=== PATIENT | female | born 1950 | race Caucasian/White ===

== ENCOUNTER 2020-02-03 14:04 | Emergency (ER) | payer MEDICARE, OTHER ==
[~2020-02-03] VITALS: Ht 165.1 cm; Wt 71.2 kg
[2020-02-03] MEDS ORDERED: MICARDIS 20MG T20 M1 PO (14:42)
[2020-02-03] MEDS ORDERED: HYDROCHLOROTHIA25 M2 PO (14:42)
[2020-02-03] MEDS ORDERED: CRESTOR5 MG PO (14:43)
[2020-02-03] MEDS ORDERED: PREVACID30 MG PO (14:43)
[2020-02-03] MEDS ORDERED: SYNTHROID75 MCG PO (14:43)
[2020-02-03 15:16] LABS: ABSOLUTE BASOPHILS 0.1 thou/uL (0.0-0.2); ABSOLUTE EOSINOPHILS 0.1 thou/uL (0.0-0.7); ABSOLUTE LYMPHOCYTES 0.8 thou/uL (0.8-5.3); ABSOLUTE MONOCYTES 0.9 thou/uL (0.0-1.2); ABSOLUTE NEUTROPHILS 8.2 thou/uL (1.6-8.1); BASOPHILS 1.2 %; HEMATOCRIT 37.5 % (37.0-47.0); HEMOGLOBIN 12.6 gm/dL (12.0-15.0); LYMPHOCYTES 7.8 %; MCH 28.8 pg (26.0-34.0); MCHC 33.6 g/dL (28.0-37.0); MCV 85.6 fL (80.0-100.0); MONOCYTES 8.7 %; MPV 7.9 fl. (7.2-11.1); NUCLEATED RBCS 0 /100WBC; PLATELET COUNT* 271 thou/uL (150-400); POLYS 81.3 %; RBC 4.38 mil/uL (4.20-5.00); RDW-CV 13.5 % (10.5-14.5); WBC 10.1 thou/uL (4.0-11.0)
[2020-02-03 15:24] LABS: CALCIUM 9.1 mg/dL (8.5-10.1); CREATININE 1.1 mg/dL (0.6-1.3); POTASSIUM 3.4 mmol/L (3.5-5.1)
[2020-02-03 15:28] LABS: APTT 23.7 Seconds (25.0-31.3); PROTIME 10.6 Seconds (9.20-11.50)
[2020-02-03 15:40] LABS: ALBUMIN 4.3 g/dL (3.4-5.0); TOTAL BILIRUBIN 0.3 mg/dL (<0.1-1.0); TOTAL PROTEIN 7.4 g/dL (6.4-8.2)
[2020-02-03 20:53] VITALS: BP 144/62
--- NOTE | 2020-02-04 15:27 | EKG ---
[place] [address] ELECTROCARDIOGRAM REPORT Name: JONO VIDALES Room: [facility]#: [id number] Admission: 02/03/20 Attend Phys: Discharge: 02/03/20 Date of : 50 Date of Service: 02/03/20 1459 Report #: [id number] THIS REPORT FOR: //name// [facility] ED Test Date: 2020-02-03 Test Time: 14:59:31 Pat Name: JONO VIDALES Department: Room: Gender: F Clinical Review Nurse: [facility] : 1950 Requested By: Sydni Huff Order Number: [id number] MD: Jack Spence Measurements Intervals Turner Rate: 90 P: 64 MN: 195 QRS: 71 QRSD: 100 T: 22 QT: 360 QTc: 441 Interpretive Statements Sinus rhythm No previous ECG available for comparison Electronically Signed On 02-04-2020 15:27:06 CDT by Jack Spence [email or web address] <ELECTRONICALLY SIGNED> By: Jack Spence MD, [facility] 02/04/20 1527 1459 1459 Jack Spence MD, FACC /EPI
== END 2020-02-03 20:54 | disposition home or self-care (01) ==
LOC: M.ERS 14:04
PROVIDERS: Nurse Practitioner Family
DX: N13.5 Crossing vessel and stricture of ureter without hydronephrosis (principal); R00.2 Palpitations; R60.0 Localized edema; I10 Essential (primary) hypertension; E78.00 Pure hypercholesterolemia, unspecified; R79.1 Abnormal coagulation profile; Z79.899 Other long term (current) drug therapy